=== PATIENT | female | born 1960 | race Caucasian/White ===

== ENCOUNTER → 2016-10-13 | Outpatient (CLI) | payer OTHER | LOC: CIMAGING 08:26 | DX: R91.1 Solitary pulmonary nodule (principal) | CPT/HCPCS: 71250-PO ==

== ENCOUNTER → 2016-12-11 | Outpatient (CLI) | payer OTHER ==
[~2016-12-11] MED LIST: IOPAMIDOL (ISOVUE 370) 100 ML BTL IV ONE
[2016-12-11 16:56] LABS: CREATININE 0.9 mg/dL (0.6-1.0); GLOMERULAR FILTRATION RATE > 60
== END ==
LOC: FIMAGING 15:59
PROVIDERS: ATTEND Thoracic Surgery (Cardiothoracic Vascular Surgery)
DX: I77.810 Thoracic aortic ectasia (principal); R91.1 Solitary pulmonary nodule
CPT/HCPCS: Q9967

== ENCOUNTER → 2018-07-13 | Outpatient (CLI) | payer OTHER | LOC: CIMAGING 08:20 | PROVIDERS: ATTEND Thoracic Surgery (Cardiothoracic Vascular Surgery) | DX: I71.2 Thoracic aortic aneurysm, without rupture (principal); R91.1 Solitary pulmonary nodule; M47.814 Spondylosis without myelopathy or radiculopathy, thoracic region | CPT/HCPCS: 71275-PO; Q9967 ==